=== PATIENT | male | born 1995 | race Caucasian/White ===

== ENCOUNTER 2019-10-24 20:33 | Emergency (ER) | payer BC, SELFPAY ==
[2019-10-24 20:45] VITALS: BP 130/81; PULSE 103; RESP 19; TEMP 36.8; O2SAT 99; BMI 33.7
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
[2019-10-24 22:05] VITALS: BP 141/84; PULSE 86; RESP 16; TEMP 36.8; O2SAT 97
== END 2019-10-24 22:07 | disposition home or self-care (01) ==
PROVIDERS: Emergency Provider Emergency Medicine
DX: S01.01XA Laceration without foreign body of scalp, initial encounter (principal); W22.8XXA Striking against or struck by other objects, initial encounter; Y92.73 Farm field as the place of occurrence of the external cause; S06.0X0A Concussion without loss of consciousness, initial encounter; Z23 Encounter for immunization; F17.290 Nicotine dependence, other tobacco product, uncomplicated
CPT/HCPCS: 12002; 70450; 72125; 90471; 90714; 96372; 99282